=== PATIENT | male | born 1990 | race American Indian/Alaskan Native ===

== ENCOUNTER 2017-05-21 23:56 | Emergency (ER) | payer SELFPAY ==
--- NOTE | 2017-05-22 02:26 | Emergency Department Report ---
ED ENT HPI - General Chief complaint: Earache Stated complaint: LT EARACHE Time Seen by Provider: 05/22/17 01:04 Source: patient Mode of arrival: Ambulatory Limitations: No Limitations - History of Present Illness Initial comments: Patient states that he started to notice left sided hearing loss yesterday; denies ear pain, recent trauma or injuries, sore throat, nasal congestion, ear drainage, fevers and bleeding; says he tried using Q-tips and OTC ear wax removal drops and they didn't help; denies that he is a Q-tip user MD complaint: other (left sided hearing loss) Onset/Timin -: days(s) Location: L ear Severity scale (0 -10): 0 Associated Symptoms: hearing loss. denies: fever, cough, gum swelling, toothache, pain with swallowing, sore throat, tinnitus, discharge from ear, rhinorrhea - Related Data Previous Rx's Medication Instructions Recorded Last Taken Type Sulfamethoxazole/Trimethoprim 1 each PO BID #14 tablet 08/06/13 Unknown Rx [Bactrim Ds] Acetaminophen/Codeine [Tylenol 1 tab PO Q6H PRN #15 tab 06/23/15 Unknown Rx /Codeine # 3 tab] Allergies Allergy/AdvReac Type Severity Reaction Status Date / Time Penicillins Allergy Rash Verified 08/06/13 19:27 ED Dental HPI - General Chief complaint: Earache Stated complaint: LT EARACHE Time Seen by Provider: 05/22/17 01:04 Source: patient Mode of arrival: Ambulatory Limitations: No Limitations - Related Data Previous Rx's Medication Instructions Recorded Last Taken Type Sulfamethoxazole/Trimethoprim 1 each PO BID #14 tablet 08/06/13 Unknown Rx [Bactrim Ds] Acetaminophen/Codeine [Tylenol 1 tab PO Q6H PRN #15 tab 06/23/15 Unknown Rx /Codeine # 3 tab] Allergies Allergy/AdvReac Type Severity Reaction Status Date / Time Penicillins Allergy Rash Verified 08/06/13 19:27 ED Review of Systems ROS: Stated complaint: LT EARACHE Other details as noted in HPI Constitutional: denies: chills, fever, weakness Eyes: denies: eye discharge ENT: hearing loss. denies: ear pain, throat pain, dental pain, epistaxis, congestion Respiratory: denies: cough, shortness of breath Cardiovascular: denies: chest pain, palpitations Gastrointestinal: denies: nausea, vomiting Musculoskeletal: denies: back pain, myalgia Skin: denies: rash Neurological: denies: headache, weakness ED Past Medical Hx - Past Medical History Hx Asthma: Yes - Surgical History Past Surgical History?: No - Social History Smoking Status: Never Smoker Substance Use Type: None - Medications Home Medications: Home Medications Medication Instructions Recorded Confirmed Last Taken Type Sulfamethoxazole/Trimethoprim 1 each PO BID #14 tablet 08/06/13 Unknown Rx [Bactrim Ds] Acetaminophen/Codeine [Tylenol 1 tab PO Q6H PRN #15 tab 06/23/15 Unknown Rx /Codeine # 3 tab] ED Physical Exam - General Limitations: No Limitations General appearance: alert, in no apparent distress - Head Head exam: Present: atraumatic, normocephalic, normal inspection - Eye Eye exam: Present: normal appearance, PERRL, EOMI. Absent: conjunctival injection Pupils: Present: normal accommodation - ENT ENT exam: Present: normal orophraynx, mucous membranes moist, normal external ear exam, other (Bilateral TMs obstructed by cerumen; nose - normal) - Neck Neck exam: Present: normal inspection, full ROM. Absent: tenderness, lymphadenopathy - Respiratory Respiratory exam: Present: normal lung sounds bilaterally. Absent: respiratory distress, wheezes, rales, rhonchi, stridor - Cardiovascular Cardiovascular Exam: Present: regular rate, normal rhythm, normal heart sounds - Neurological Exam Neurological exam: Present: alert, oriented X3, normal gait - Psychiatric Psychiatric exam: Present: normal affect, normal mood - Skin Skin exam: Present: warm, dry, intact, normal color ED Course Vital Signs 05/21/17 23:59 Temperature 98.0 F Pulse Rate 70 Respiratory 18 Rate Blood Pressure 131/69 O2 Sat by Pulse 100 Oximetry - Ear Wax Removal Both Ears Cerumenolytic Used: Other (hydrogen peroxide) Ear Canal Irrigated by: RN Ear Canal Irrigated With: warm saline with H2O2 using syringe/angiocath, bulb syringe Results: Re-examined: cerumen removed completel TM Visible: TM(s) intact, normal appe Ear Canal: atraumatic Patient Tolerated Procedure: well Complications: no problems ED Medical Decision Making - Medical Decision Making Hearing became better after cerumen removal from both ears; Told patient to follow up with PCP as needed Critical care attestation.: If time is entered above; I have spent that time in minutes in the direct care of this critically ill patient, excluding procedure time. ED Disposition Clinical Impression: Impacted cerumen of both ears Disposition: TO HOME OR SELFCARE Is pt being admited?: No Condition: Stable Instructions: Cerumen Impaction (ED) Referrals: PRIMARY CARE, [Primary Care Provider] - 3-5 Days Time of Disposition: 04:22 Print Language: SERBIAN
[2017-05-22] MEDS ORDERED: HYDROGEN PEROXIDE ONE (02:30)
[2017-05-22] MEDS ORDERED: HYDROGEN PEROXIDE TP ONE (02:32)
[2017-05-22 04:42] VITALS: BP 129/70
== END 2017-05-22 04:43 | disposition home or self-care (01) ==
LOC: ED 23:56
DX: H61.23 Impacted cerumen, bilateral (principal); Z88.0 Allergy status to penicillin
CPT/HCPCS: 99282